=== PATIENT | female | born 1980 | race Two or more races ===

== ENCOUNTER 2019-02-05 07:49 | Outpatient (CLI) | payer OTHER | END 2019-02-05 09:30 | disposition home or self-care (01) | LOC: LAB 07:49 | DX: M54.2 Cervicalgia (principal); M54.6 Pain in thoracic spine; E11.69 Type 2 diabetes mellitus with other specified complication; E78.00 Pure hypercholesterolemia, unspecified; N39.0 Urinary tract infection, site not specified; D50.0 Iron deficiency anemia secondary to blood loss (chronic); I10 Essential (primary) hypertension ==